=== PATIENT | female | born 1965 | race American Indian/Alaskan Native ===

== ENCOUNTER 2021-10-08 08:22 | Outpatient (CLI) | payer OTHER ==
--- NOTE | 2021-10-08 11:54 | XRay Report ---
Lumbar spine-3 views INDICATION: BACK PAIN. COMPARISON: None. IMPRESSION: Grade 1 anterolisthesis of L4 on L5 with otherwise normal alignment. 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 No acute osseous or soft t issue abnormality. Signer Name: Aristeo Mcdaniel MD Signed: 10/08/2021 11:49 AM Workstation Name: [email or web address]
--- NOTE | 2021-10-08 12:31 | XRay Report ---
CHEST 2 VIEWS INDICATION / CLINICAL INFORMATION: CHANGE CONDITION SINCE COVID. COMPARISON: None available. FINDINGS: SUPPORT DEVICES: None. HEART / MEDIASTINUM: No significant abnormality. LUNGS / PLEURA: No significant pulmonary or pleural abnormality. No pneumothorax. ADDITIONAL FINDINGS: No significant additional findings. IMPRESSION: 1. No acute findings. Signer Name: Bob Bazzi DO Signed: 10/08/2021 12:27 PM Workstation Name: [email or web address]
== END 2021-10-08 08:23 | disposition home or self-care (01) ==
LOC: XRAY 08:22
PROVIDERS: ATTEND Internal Medicine
DX: M47.815 Spondylosis without myelopathy or radiculopathy, thoracolumbar region (principal); Z02.71 Encounter for disability determination
CPT/HCPCS: 71046; 72100